=== PATIENT | female | born 1990 | race Caucasian/White ===

== ENCOUNTER → 2018-02-12 09:49 | Outpatient (CLI) | payer OTHER, SELFPAY ==
[2017-06-27 12:30] VITALS: BMI 28.7
[2018-02-12 12:03] LABS: Color, Urine Yellow (Yellow); Glucose, Dipstick Normal (Normal); Ketone-Dipstick 15 mg/dl (Negative); Leukocyte Esterase-Dipstick Negative /ul (Negative); Nitrite-Dipstick Negative (Negative); Occult Blood-Urine 10 /ul (Negative); Protein-Dipstick Negative (Negative); Urine Bilirubin Dipstick Negative (Negative); Urine Clarity Sl. Cloudy (Clear); Urine Urobilinogen Normal (Normal); Urine pH 6.5 (5.0 - 8.0)
[2018-02-12 12:13] LABS: Absolute Lymphocyte Count 2.29 X10^3/ul (0.83-4.51); Absolute Neutrophil Count 4.5 X10^3/uL (2.0-7.7); Basophil# 0.03 X10^3/uL; Basophil% 0.4 % (0-1); Eosinophil# 0.09 X10^3/uL; Eosinophils% 1.2 % (0-5); Lymphocyte # 2.29 X10^3/ul (4.0); Mean Corp Hgb Conc 34.1 g/gl (32-36); Mean Corpuscular Hgb 29.2 pg (27.0-32.0); Mean Corpuscular Volume 85.4 fL (81-99); Monocyte# 0.52 X10^3/uL; Neutrophil # 4.45 X10^3/uL (2.7-7.7); Neutrophil % 60.3 % (47-70); Platelet Count 250 K/mm3 (150-450); RBC Distribution Width CV 14.5 % (11.6-14.6); RBC Distribution Width SD 44.5 fl (35.1-43.9); White Blood Count 7.4 K/mm3 (4.4-11.0)
[2018-02-12 12:21] LABS: POSITIVE COUNT NO; POSITIVE DIFFERENTIAL NO; POSITIVE MORPHOLOGY NO
[2018-02-12 12:25] LABS: Protein, Urine (Random) < 6.0 mg/dL (<11.9); Prothrombin Time (Protime)PT. 12.7 SECONDS (11.7-14.9)
[2018-02-12 12:26] LABS: Partial Thromboplast Time 29.9 Seconds (24.1-36.2)
[2018-02-12 12:44] LABS: ALB/GLOB Ratio 1.1 RATIO (0.9-2.4); AST(SGOT) 16 U/L (15-37); Alanine Aminotransfer ALT/SGPT 31 U/L (13-56); Alkaline Phosphatase 62 U/L (45-117); Anion Gap 12 (5-15); BUN 13 mg/dL (7-18); BUN/Creat Ratio 19.5 RATIO (10-20); Calcium,Total 8.7 mg/dL (8.5-10.1); Chloride 104 mmol/L (98-107); Creatinine, Serum 0.66 mg/dL (0.55-1.02); EST Glomerular Filtration Rate 114 mL/min (>60); Est Glom Filt Rate - Afr Amer 138 mL/min (>60); Globulin 3.5 g/dL (2.2-4.2); Glucose 81 mg/dL (74-106); Potassium 3.7 mmol/L (3.5-5.1); Protein, Total 7.5 g/dL (6.4-8.2); Rheumatoid Factor < 10.0 IU/mL (<15); Sodium Level 140 mmol/L (136-145)
[2018-02-13 12:09] LABS: Anti-Centromere B Ab <0.2 AI (0.0-0.9); Anti-Jo <0.2 AI (0.0-0.9); Anti-Scleroderma-70 AB <0.2 AI (0.0-0.9); RNP Ab <0.2 AI (0.0-0.9); SJOGREN'S Anti-SS-A test < 0.2 AI (0.0-0.9); SJOGREN'S Anti-SS-B test < 0.2 AI (0.0-0.9); Smith Ab <0.2 AI (0.0-0.9)
[2018-02-13 16:55] LABS: ANTINUCLEAR ANTIBODIES DIRECT Negative (Negative); Anti-dsDNA Ab 1 IU/mL (0-9)
[2018-02-14 05:06] LABS: Complement C3 125 mg/dL (82-167); Dilute Prothrombin Time (dPT) 49.9 sec (0.0-55.0); Dilute Russell Viper Venom 40.7 sec (0.0-47.0); Hexagonal Phase Phospholipid 10 sec (0-11); Thrombin Time 18.1 sec (0.0-23.0); dPT Confirm Ratio 1.08 Ratio (0.00-1.40)
[2018-02-14 09:25] LABS: CCP IgG Antibodies 10 units (0-19); HEPATITIS B SURFACE AG Negative (Negative); Hep B Surface Antibodies Non Reactive (.); Hep C Antibodies 0.2 s/co ratio (0.0-0.9); Interpretation Comment: (.)
[2018-02-14 09:36] LABS: Thrombin Time 18.3 sec (0.0-23.0)
== END ==
PROVIDERS: Family Provider Family Medicine; PCP Family Medicine; Referring Provider Internal Medicine Rheumatology; Visit Provider Internal Medicine Rheumatology
DX: M06.4 Inflammatory polyarthropathy (principal); M35.7 Hypermobility syndrome
CPT/HCPCS: 36415; 80053; 81002; 82570; 84156; 85025; 85598; 85610; 85670; 85730; 86038; 86160; 86200; 86225; 86235; 86431; 86706; 86803; 87340

== ENCOUNTER → 2018-06-05 17:54 | Outpatient (CLI) | payer OTHER, SELFPAY ==
[2017-06-27 12:30] VITALS: BMI 28.7
[2018-06-13 12:00] LABS: HPV Reflexed? NOT INDICATED
== END ==
PROVIDERS: Family Provider Family Medicine; PCP Family Medicine; Visit Provider Obstetrics & Gynecology
DX: Z12.4 Encounter for screening for malignant neoplasm of cervix (principal)
CPT/HCPCS: 87624; 88175; G0145

== ENCOUNTER → 2019-02-22 18:37 | Outpatient (CLI) | payer OTHER, SELFPAY ==
[2019-02-22 20:12] LABS: Chlamydia Trachomatis by PCR Negative (Negative); Neisserai gonorrhoeae by PCR Negative (Negative); Probe Check PASS; Sample Adequacy Control PASS; Specimen Processing Control PASS
== END ==
PROVIDERS: Family Provider Family Medicine; PCP Family Medicine; Referring Provider Obstetrics & Gynecology; Visit Provider Obstetrics & Gynecology
DX: Z11.3 Encounter for screening for infections with a predominantly sexual mode of transmission (principal)
CPT/HCPCS: 87491; 87591

== ENCOUNTER → 2019-03-29 16:29 | Outpatient (CLI) | payer OTHER, SELFPAY ==
[2017-06-27 12:30] VITALS: BMI 28.7
[2019-03-29 17:58] LABS: Absolute Lymphocyte Count 2.68 X10^3/uL (0.83-4.51); Absolute Neutrophil Count 7.4 X10^3/uL (2.0-7.7); Basophil# 0.04 X10^3/uL; Basophil% 0.4 % (0-1); Eosinophil# 0.03 X10^3/uL; Eosinophils% 0.3 % (0-5); Hematocrit 38.1 % (37-47); Lymphocyte # 2.68 X10^3/ul (4.0); Lymphocyte % 25.1 % (19-41); Mean Corp Hgb Conc 34.1 g/dL (32-36); Mean Corpuscular Hgb 29.3 pg (27.0-32.0); Mean Platelet Vol. 10.2 fl (6.2-12.0); Monocyte# 0.51 X10^3/uL; Monocyte% 4.8 % (0-10); NRBC Flagged by Analyzer 0 % (0-5); Neutrophil # 7.39 X10^3/uL (2.7-7.7); Platelet Count 213 K/mm3 (150-450); RBC Distribution Width CV 12.7 % (11.6-14.6); RBC Distribution Width SD 39.8 fl (35.1-43.9); Red Blood Count 4.43 M/mm3 (4.2-5.4); White Blood Count 10.7 K/mm3 (4.4-11.0)
[2019-03-29 18:13] LABS: Amphetamine Urine VISTA NEGATIVE (<1000 ng/mL); Barbiturate Urine VISTA NEGATIVE (< 200 ng/mL); Benzodiazepine Urine VISTA NEGATIVE (< 200 ng/mL); Cocaine Urine VISTA NEGATIVE (< 300 ng/mL); Ecstacy Urine VISTA NEGATIVE (< 500 ng/mL); Methadone Urine VISTA NEGATIVE (< 300 ng/mL); PCP Urine VISTA NEGATIVE (< 25 ng/mL); THC Urine VISTA NEGATIVE (< 50 ng/mL); Vista UDS pH Range 7
[2019-03-29 18:24] LABS: Thyroid Stim Hormone (TSH) 1.93 uIU/mL (0.358-3.74)
[2019-03-29 18:39] LABS: Color, Urine Yellow (Yellow); Glucose, Dipstick Normal (Normal); Ketone-Dipstick 5 mg/dl (Negative); Leukocyte Esterase-Dipstick 100 /ul (Negative); Nitrite-Dipstick Negative (Negative); Occult Blood-Urine 10 /ul (Negative); Protein-Dipstick Negative (Negative); Specific Gravity, Urine 1.015 (1.002-1.030); Urine Bilirubin Dipstick Negative (Negative); Urine Clarity Cloudy (Clear); Urine Urobilinogen Normal (Normal)
[2019-04-01 10:33] LABS: HIV - WCH Non-Reactive (Nonreactive); Hepatitis B Surface Antigen Non-Reactive (Nonreactive); Hepatitis C Antibody Non-Reactive (Nonreactive); Rubella IgG > 500.0 IU/mL; Vitamin D,25 Hydroxy 17.5 ng/mL (29.95-100.01)
[2019-04-04 02:55] LABS: Prenatal RPR NONREACTIVE (NONREACTIVE)
== END ==
PROVIDERS: Visit Provider Obstetrics & Gynecology
DX: Z34.82 Encounter for supervision of other normal pregnancy, second trimester (principal)
CPT/HCPCS: 36415; 80307; 81002; 82306; 84443; 85025; 86703; 86762; 86803; 87340

== ENCOUNTER → 2019-07-05 | Outpatient (CLI) | payer OTHER, SELFPAY ==
[2017-06-27 12:30] VITALS: BMI 28.7
[2019-07-05 16:58] LABS: Hematocrit 35.4 % (37-47); Hemoglobin 12.1 g/dL (12.0-15.0); Mean Corp Hgb Conc 34.2 g/dL (32-36); Mean Corpuscular Hgb 30.7 pg (27.0-32.0); Mean Corpuscular Volume 89.8 fL (81-99); Mean Platelet Vol. 9.7 fl (6.2-12.0); Platelet Count 243 K/mm3 (150-450); RBC Distribution Width CV 13.6 % (11.6-14.6); RBC Distribution Width SD 44.9 fl (35.1-43.9); Red Blood Count 3.94 M/mm3 (4.2-5.4); White Blood Count 9.9 K/mm3 (4.4-11.0)
[2019-07-05 17:09] LABS: Glucose Challenge Gest 1H 50g 87 mg/dL (70-140)
[2019-07-05 17:47] LABS: Vitamin D,25 Hydroxy 35.8 ng/mL
== END | disposition home or self-care (01) ==
LOC: LABSPEC 16:10
PROVIDERS: Referring Provider Obstetrics & Gynecology; Visit Provider Obstetrics & Gynecology
DX: Z34.83 Encounter for supervision of other normal pregnancy, third trimester (principal); E55.9 Vitamin D deficiency, unspecified
CPT/HCPCS: 82306; 82950; 85027

== ENCOUNTER 2019-07-25 17:08 | Outpatient (CLI) | payer OTHER, SELFPAY ==
[2017-06-27 12:30] VITALS: BMI 28.7
[2019-07-25 17:20] VITALS: BP 118/70; PULSE 98; TEMP 36.9; O2SAT 97
--- NOTE | 2019-07-25 17:48 | OB.TRI.NOTE ---
- Problem List (1) Decreased movement Status: Acute Qualifiers: Fetus number: single or unspecified fetus Trimester: third trimester Qualified Code(s): O36.8130 - Decreased movements, third trimester, not applicable or unspecified (2) 30 weeks gestation of Status: Acute History of Present Illness Date of Service: 07/25/19 Was patient seen by the physician?: Yes Reason For Visit: DECREASED MOVEMENT Date of Service: 07/25/19 Final BO: 09/27/19 Gestational age: 30 Weeks and 6 Days History of Present Illness: here at 30w6d gestation with decreased movement. States that the last two days she hasn't felt her baby move as much as normal. Allergies No Known Allergies Allergy (Unverified 06/27/17 12:31) - Pertinent Past Medical History Medical History: Past Medical History (Last Updated 06/27/17 @ 12:36 by Starr Sharma) Arthritis Review of Systems Constitutional: Denies: Chills, Fever, Weight Change HEENT: Denies: Head Aches, Sinus Congestion, Sinus Drainage Cardiovascular: Denies: Chest Pain, Palpitations Respiratory: Denies: Cough, Shortness of breath at rest, Sputum production Gastrointestinal: Denies: Abdominal Pain, Nausea, Vomiting Genitourinary: Denies: Dysuria Musculoskeletal: Denies: Joint Pain, Joint Tenderness Skin: Denies: Rash, Wounds Neurological: Denies: Numbness, Tingling, Focal weakness Psychiatric: Reports: Anxiety. Denies: Depression, Homicidal Ideations, Suicidal Ideations Hematologic/ Lymphatic: Denies: Easy Bruising, Easy Bleeding Physical Exam Vitals: Vital Signs Temp Pulse BP Pulse Ox 98.4 F 98 118/70 97 07/25/19 17:20 07/25/19 17:20 07/25/19 17:20 07/25/19 17:20 General: Alert, Oriented x3, No apparent distress HEENT: Atraumatic, Normocephalic. Negative for: Thyromegaly, Lymphadenopathy Cardiovascular: Regular rate, Regular Rhythm Lungs: Clear to auscultation Abdomen: Bowel Sounds Present, Gravid Neurological: Deep Tendon Reflexes 2+/4 and Symmetrical, Neuro grossly intact FINGERNAIL SCULPTURER: Normal external genitalia. 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
[2019-07-25 18:23] VITALS: BP 113/65; PULSE 88
[2019-07-25 18:25] VITALS: BMI 37.3
== END 2019-07-25 18:45 | disposition home or self-care (01) ==
LOC: WPOUT 17:18 → WP 17:18
PROVIDERS: Visit Provider Obstetrics & Gynecology
DX: O36.8130 Decreased fetal movements, third trimester, not applicable or unspecified (principal); Z3A.30 30 weeks gestation of pregnancy
CPT/HCPCS: 59025; 59050; 99218; G0378

== ENCOUNTER → 2019-08-02 16:50 | Outpatient (CLI) | payer OTHER, SELFPAY ==
[2019-07-25 18:25] VITALS: BMI 37.3
[2019-08-05 14:07] LABS: SJOGREN'S Anti-SS-A test < 0.2 AI (0.0-0.9)
[2019-08-05 20:59] LABS: SJOGREN'S Anti-SS-B test < 0.2 AI (0.0-0.9)
== END ==
PROVIDERS: Visit Provider Obstetrics & Gynecology
DX: Z34.83 Encounter for supervision of other normal pregnancy, third trimester (principal)
CPT/HCPCS: 36415; 86235

== ENCOUNTER → 2019-08-30 | Outpatient (CLI) | payer OTHER, SELFPAY | END | disposition home or self-care (01) | LOC: LABSPEC 16:10 | PROVIDERS: Visit Provider Obstetrics & Gynecology | DX: Z36.85 Encounter for antenatal screening for Streptococcus B (principal) | CPT/HCPCS: 87077; 87081; 87186 ==

== ENCOUNTER → 2019-09-09 16:30 | Outpatient (CLI) | payer OTHER, SELFPAY | PROVIDERS: PCP Family Medicine; Referring Provider Obstetrics & Gynecology; Visit Provider Obstetrics & Gynecology | DX: Z34.83 Encounter for supervision of other normal pregnancy, third trimester (principal) | CPT/HCPCS: 87635; G2023; U0003 ==

== ENCOUNTER 2019-09-13 10:00 | Outpatient (CLI) | payer OTHER, SELFPAY ==
[2019-09-13 10:22] VITALS: BMI 38.6
[2019-09-13] MEDS: Lactated Ringers 1,000 ML 125 ML IV (10:35)
[2019-09-13 10:41] VITALS: BP 119/80; PULSE 104
[2019-09-13] MEDS: Terbutaline 1 MG/ML Vial 0.25 MG SC (12:35)
[2019-09-13 12:37] VITALS: BP 116/72; PULSE 86
--- NOTE | 2019-09-13 12:45 | OB.TRI.NOTE ---
- Problem List (1) 38 weeks gestation of Status: Acute (2) malpresentation Status: Acute Qualifiers: malpresentation type: transverse lie Fetus number: single or unspecified fetus Qualified Code(s): O32.2XX0 - Maternal care for transverse and oblique lie, not applicable or unspecified History of Present Illness Date of Service: 09/13/19 Was patient seen by the physician?: Yes Reason For Visit: EXTERNAL VERSION Final BO: 09/27/19 Final BO Source: US <20 weeks Gestational age: 38 Weeks and 0 Days History of Present Illness: 29yo G1 @ 38 wga presents for scheduled external cephalic version due to transverse lie. Kim feels well today and is without complaints. Allergies No Known Allergies Allergy (Unverified 09/13/19 10:32) - Pertinent Past Medical History Medical History: Past Medical History (Last Updated 09/15/19 @ 14:[address] Renae Oro MD) Arthritis SLE (systemic lupus erythematosus) Laboratory Studies: COVID 19 NAAT negative Social History Smoking Status Never smoker Physical Exam Vitals: Vital Signs Pulse BP 86 116/72 09/13/19 12:37 09/13/19 12:37 General: Alert, Oriented x3, Cooperative, No apparent distress HEENT: Atraumatic, Normocephalic Cardiovascular: Regular rate, Regular Rhythm Lungs: Normal air movement Abdomen: Soft, Non Tender, Non-Distended, Gravid Estimated gestational size: Appropriate for gestational size Presentation: Transverse NST - FHR Rate Baby A Baseline: 135 Variability:: Moderate Accelerations:: 15 x 15 Decelerations:: None NST Reactive:: Yes FHR Category:: Category I Uterine Activity:: 0/10 Impression/Plan 29yo G1 @ 38 weeks gestation with transverse lie Bedside US confirms transverse life with MELODY 15.7cm Proceed with ECV as planned See procedure note
--- NOTE | 2019-09-13 13:07 | PCM.OPRPT ---
Problem List (1) 38 weeks gestation of Status: Acute (2) malpresentation Status: Acute Qualifiers: malpresentation type: transverse lie Fetus number: single or unspecified fetus Qualified Code(s): O32.2XX0 - Maternal care for transverse and oblique lie, not applicable or unspecified Report of Operation Date of Procedure: 09/13/19 Pre-Operative Diagnosis: 1. 38 week gestation. 2. Transverse lie Post-Operative Diagnosis: 1. 38 weeks gestation. 2. Transverse lie Surgery/Procedure Performed:: External cephalic version Special Medications: Terbutaline 0.25mg SC Description of Procedure: Patient monitored with Category I FHR present. Bedside US performed confirming transverse lie with head on the maternal left. MELODY 15.7cm. Reviewed with patient procedural indications and risks including discomfort, labor, rupture of membranes with potential prolapsed cord, placental abruption, FHR changes - any of which may necessitate emergent section. Patient and spouse given opportunity to ask questions and questions answered to their satisfaction. She desired to proceed. Terbutaline SC administered. I attempted a backward roll, then followed by a forward roll with version of the fetus into cephalic presentation. Periodic sonography was performed with view of the placenta with no evidence of bleed and FHR remained 140s-150s bpm when observed throughout the procedure. NST completed post procedure and reactive, Cat I. Patient without complaint of pain, leaking of fluid or bleeding. Will monitor for 2 hours post procedure, then d/c home. - Admit VTE Documentation VTE Present on Admission: No VTE Mechan Device Prophylaxis: SCD's VTE Pharm Prophylaxis ordered?: No
== END 2019-09-13 16:00 | disposition home or self-care (01) ==
LOC: WPOUT 10:05 → WP 10:05
PROVIDERS: PCP Family Medicine; Referring Provider Obstetrics & Gynecology; Visit Provider Obstetrics & Gynecology
DX: O32.2XX0 Maternal care for transverse and oblique lie, not applicable or unspecified (principal); O99.89 Other specified diseases and conditions complicating pregnancy, childbirth and the puerperium; M32.9 Systemic lupus erythematosus, unspecified; Z3A.38 38 weeks gestation of pregnancy
CPT/HCPCS: 96360; 96361 ×7; 96372; 59025; 59050; 59412; 99218; J7120; G0378

== ENCOUNTER → 2019-09-19 11:15 | Outpatient (CLI) | payer OTHER, SELFPAY ==
[2019-09-13 10:22] VITALS: BMI 38.6
== END ==
PROVIDERS: PCP Family Medicine; Visit Provider Obstetrics & Gynecology
DX: Z11.59 Encounter for screening for other viral diseases (principal)
CPT/HCPCS: 87635; G2023; U0003

== ENCOUNTER 2019-09-24 06:52 | Inpatient (IN) | payer OTHER, SELFPAY ==
[2019-09-24] VITALS (35 sets, daily range): BP systolic 97–157; BP diastolic 54–85; PULSE 72–141; TEMP 36.3–37.6; O2SAT 96–100; BMI 39.5
[2019-09-24] MEDS: Lactated Ringers 1,000 ML 125 ML IV (07:45)
[2019-09-24] MEDS: Terbutaline 1 MG/ML Vial 0.25 MG SC (08:08)
--- NOTE | 2019-09-24 08:35 | PCM.OPRPT ---
Problem List (1) 39 weeks gestation of Status: Acute (2) Breech presentation of fetus Status: Acute Qualifiers: Fetus number: single or unspecified fetus Qualified Code(s): O32.1XX0 - Maternal care for breech presentation, not applicable or unspecified Report of Operation Date of Procedure: 09/24/19 Pre-Operative Diagnosis: 1. 39-4/7 weeks gestational age. 2. breech presentation Post-Operative Diagnosis: 1. 39-4/7 weeks gestational age. 2. breech presentation Surgery/Procedure Performed:: External cephalic version Description of Surgical Findings:: MELODY 16.2 cm with MVP 4.56 cm. breech presentation. Special Medications: Terbutaline 0.25 mg Description of Procedure: Indications: 29-year-old 1 at 39-4/7 weeks gestational age with history of variable lie. She had presented at 38 weeks with transverse lie and underwent successful external cephalic version. On follow-up to the office however the baby had reverted to transverse presentation. She presents today for repeat version attempt. Reviewed with patient procedural risks, benefits, indications and alternatives. If version is unsuccessful we will proceed with section today. Citizen Of [place] section risks, benefits, indications and alternatives were reviewed. Patient and her spouse were given opportunity to ask questions and questions were answered to their satisfaction. Procedure: Patient had NST demonstrating baseline 130 bpm, moderate variability positive positive accelerations with absent decelerations. Bedside ultrasound was performed showing nuris breech presentation with head at the maternal right upper abdomen. MELODY was 16.2 cm. Placenta was anterior and fundal. Patient was given subcutaneous terbutaline. I proceeded with forward roll attempt followed by backward roll attempt with intermittent heart rate monitoring using the ultrasound. I again attempted a forward roll with significant shift of the position. Ultrasound was performed demonstrating cephalic presentation with normal appearing placenta. External heart rate monitor was replaced with heart rate in the 140s. Will plan to continue extended heart rate monitoring and proceed with induction later this morning. Patient tolerated the procedure well. - Admit VTE Documentation VTE Present on Admission: No VTE Pharm Prophylaxis ordered?: No
[2019-09-24 08:47] LABS: Absolute Lymphocyte Count 2.42 X10^3/uL (0.83-4.51); Absolute Neutrophil Count 8.1 X10^3/uL (2.0-7.7); Basophil# 0.03 X10^3/uL; Basophil% 0.3 % (0-1); Eosinophil# 0.09 X10^3/uL; Eosinophils% 0.8 % (0-5); Hematocrit 38.4 % (37-47); Hemoglobin 12.8 g/dL (12.0-15.0); Lymphocyte # 2.42 X10^3/ul (4.0); Mean Corp Hgb Conc 33.3 g/dL (32-36); Mean Corpuscular Volume 89.9 fL (81-99); Monocyte# 0.78 X10^3/uL; Monocyte% 6.8 % (0-10); NRBC Flagged by Analyzer 0 % (0-5); Neutrophil # 8.13 X10^3/uL (2.7-7.7); Neutrophil % 70.5 % (47-70); Platelet Count 251 K/mm3 (150-450); RBC Distribution Width CV 12.9 % (11.6-14.6); RBC Distribution Width SD 42.5 fl (35.1-43.9); Red Blood Count 4.27 M/mm3 (4.2-5.4); White Blood Count 11.5 K/mm3 (4.4-11.0)
--- NOTE | 2019-09-24 08:49 | PCM.HP.OB ---
- Problem List (1) 39 weeks gestation of Status: Acute (2) Breech presentation of fetus Status: Acute Qualifiers: Fetus number: single or unspecified fetus Qualified Code(s): O32.1XX0 - Maternal care for breech presentation, not applicable or unspecified History Date of Admission: 09/24/19 Final BO: 09/27/19 Final BO Source: US <20 weeks Gestational age: 39 Weeks and 4 Days History of this : This is a 29 year-old, G [1], P [], at 39 4/7 weeks gestational age with hx SLE and transverse lie who presented for external cephalic version this morning. The fetus was verted to cephalic presentation. Medical History: Medical History (Last Updated 09/15/19 @ 14:[address] Renae Oro MD) Arthritis M19.90 SLE (systemic lupus erythematosus) M32.9 Allergies No Known Allergies Allergy (Unverified 09/13/19 10:32) Home Medications: Home Medications cholecalciferol (vitamin D3) 25 mcg (1,000 unit) capsule 1,000 unit PO QDAY 06/27/17 Docosahexanoic Acid [Dha Algal-900] 300 mg PO DAILY 09/13/19 Hydroxychloroquine [Plaquenil] 200 mg PO DAILYCM 09/13/19 Pnv No.95/Ferrous Fum/Folic AC [ Caplet] 1 ea PO DAILY 09/13/19 Smoking Status: Never smoker Alcohol: None Number of Fetus(es): 1 NST - FHR Rate Baby A Baseline: 130 Variability:: Moderate Accelerations:: 15 x 15 Decelerations:: None NST Reactive:: Yes FHR Category:: Category I Uterine Activity:: 1/10 min History Past Pregnancies: Past Pregnancies Delivery Date Name GA/ Weeks Outcome Route Wt Sex Labor Length Anesthesia Delivery Location Provider FOB Labs: Mom's Problem List Problem Status Onset Code 39 weeks gestation of Acute Z3A.39 Breech presentation of fetus Acute O32.1XX0 Mom's Labs & Results 09/24/19 09/24/19 07:45 07:45 WBC 11.5 H RBC 4.27 Hgb 12.8 Hct 38.4 MCV 89.9 MCH 30.0 MCHC 33.3 RDW Std Deviation 42.5 RDW Coeff of Billy 12.9 Plt Count 251 MPV 10.0 Immature Gran % (Auto) 0.600 Neut % (Auto) 70.5 H Lymph % (Auto) 21.0 [place] % (Auto) 6.8 Eos % (Auto) 0.8 Baso % (Auto) 0.3 Absolute Neuts (auto) 8.1 H Absolute Lymphs (auto) 2.42 Nucleated RBC % 0 Blood Type AB POSITIVE Antibody Screen NEGATIVE Course Did the patient receive Yes care? Labs Blood Type: AB RH: POSITIVE RPR/VDRL/Syphilis Nonreactive Rubella status Immune HbSAg Negative Date Done: 03/29/19 Chlamydia Negative Gonorrhea Negative HIV/AIDS Non-Reactive Group B Strep: Positive Current Obstetrical History Gestational Diabetes No Incompetent Cervix No Infertility No IUGR No Macrosomia No Hypertension/Pre-eclampsia No Placenta Previa/Abruption No PTL/PROM No Uterine anomaly No Oligohydramnios No Polyhydramnios No Multiple gestation No Past Medical History Asthma No Diabetes No Hypertension No Heart disease No Mitral valve prolapse No Neurologic/Seizure disorder/ No Migraines Kidney disease No Liver disease No Varicosities No Clotting disorders/Hx of DVT No Thyroid Dysfunction No Other medical diseases Yes: lupus Psychiatric disorders No Major trauma No Abnormal PAP smear No Sleep apnea No Mammogram in the last 2 years No Enter DETAILS of medical pt states that she has some anxiety but she is history able to cope and deal with it on your own Social History Marital Status: Alleged father yoav Hx Smoking No Smoking Status Former smoker Expected Infant Delivery Method: Spontaneous Vaginal Number of Visits: 9 Physical Exam Vitals: Vital Signs Pulse BP 86 111/70 09/24/19 07:54 09/24/19 07:54 General: Alert, Oriented x3, Cooperative, No apparent distress HEENT: Atraumatic, Normocephalic Cardiovascular: Regular rate, Regular Rhythm, Normal S1, Normal S2 Lungs: Clear to auscultation, Normal air movement Abdomen: Soft, Non Tender, Non-Distended, Gravid Extremities:: No tenderness/swelling Neurological: Neuro grossly intact SUPERVISOR MULTIFOCAL LENS: Normal external genitalia Estimated gestational size: Appropriate for gestational size Presentation: Cephalic Cervix Dilation (cm): 0.5 Station: -3 Effacement (%): 25 Assessment/Plan All Active Problems (Last Updated 09/15/19 @ 14:[address] Renae Oro MD) malpresentation (Acute) 39 weeks gestation of (Acute) Breech presentation of fetus (Acute) This is a 29 year-old, G 1], P [], at 39 4/7 weeks gestational age. Proceed with misoprostol IOL
[2019-09-24] MEDS: Lactated Ringers 1,000 ML 50 ML IV (09:37)
[2019-09-24] MEDS: miSOPROStol 25 MCG TABLET VAGINAL (09:52)
[2019-09-24] MEDS: miSOPROStol 50 MCG TABLET VAGINAL (13:47)
[2019-09-24] MEDS: Mag Hydrox/Al Hydrox/Simeth 30 ML UDC PO ×2 (14:25→19:46)
[2019-09-24] MEDS: Lactated Ringers 500 ML 999 ML IV ×4 (14:32→19:10)
--- NOTE | 2019-09-24 17:53 | PCM.PN.BLA ---
Progress Note LABOR PROGRESS NOTE Requests pain medication. AVSS Breathing through contractions FHR 130, moderate variability, +accelerations, no decelerations TOCO 5/10 min SVE 2/75/-5, moderate and midposition A/P: 29yo G1 @ 39 4/7wga, IOL, hx maternal SLE, Cat I FHR -Epidural per patient request -Continue to monitor s/p cytotec -Maternal and statuses reassuring STROKE Vital Signs/Narrative: Vital Signs Temp Pulse BP Pulse Ox 09/24/19 16:55 99.6 F H 98 09/24/19 16:54 90 128/81 H 09/24/19 14:37 99.5 F H 09/24/19 14:36 87 120/76 97
[2019-09-24] MEDS: fentaNYL-bupivacaine (epidural) 100 ML BAG EPIDURAL ×2 (18:11→22:50)
[2019-09-24] MEDS: Lactated Ringers 1,000 ML 200 ML IV (19:54)
[2019-09-24] MEDS: Cefazolin 2 GM in 0.9% Normal Saline 100 ML IV (23:30)
--- NOTE | 2019-09-24 23:38 | PLAC_PTH ---
PATIENT: JAROD ABREU LOC: [facility] U#:[id number] AGE/SX: 29/F ROOM: WP007 RE09/24/[address]: Dr. Christopher Hemphill MD : 1990 BED: 1 DIS: 09/26/2019 SPEC #: [id number] RECD: 09/25/19 01:15 STATUS: ESTER JAME #: [id number] THI: 09/24/19 23:[address]: Christopher Hemphill DEPT: SURGICAL PATHOLOGY RECD BY: Osmany Bond ENTERED: 09/25/19 09:25 SP TYPE: PLACENTA OTHR DR: Dr. Juan Pablo Rivas MD Tissues: Placenta, NOS Procedures: Surgery Specimen Level V HEADER OPERATION: Primary section PRE-OP DIAGNOSIS: Labor TISSUE SUBMITTED: Placenta MICROSCOPIC DIAGNOSIS Placenta: Placental disc - third trimester placenta (424 gm). - Focal chronic villitis of unknown etiology. Membranes - no pathologic diagnosis. Umbilical cord - three blood vessels and no pathologic diagnosis. SJ:bandar 09/27/19 MICROSCOPIC DESCRIPTION Slides are reviewed. GROSS DESCRIPTION SPECIMEN: PLACENTA / CLINICAL INFORMATION: A. Weight: 3.815 kg B. Gestational Age: 39 weeks C. Sex: Female PLACENTAL WEIGHT (POST FIXATION): 424 gm PLACENTAL DIMENSIONS: 20 x 16 x 2 cm PLACENTAL SHAPE: Usual ovoid PLACENTAL WEIGHT FOR GESTATIONAL AGE: Within 10-99th percentile MEMBRANES - Present A. Insertion: Marginal B. Site of rupture from edge: At edge of placental disc C. Color of membrane: Parsons-fang D. Abnormalities: None UMBILICAL CORD - Present A. Color: Parsons-fang B. Insertion: Eccentric C. Length: 21 cm D. Diameter: 1 cm E. Number of vessels: Three F. Abnormalities: None PLACENTAL DISC - Present A. Color of surface: Parsons-fang B. surface abnormalities: None C. Maternal cotyledons: Intact with minimal tears D. Attached retro placental clot: No clot E. Cut surface: Dark red and spongy F. Lesions: None G. Separate clot: Absent SECTIONS SUBMITTED: 1. Umbilical cord ( end notched) 2. Umbilical cord, placental end 3. Membrane roll 4. Placental disc, and maternal surfaces 5. Placental disc, and maternal surfaces 6. Placental disc, and maternal surfaces AM:bandar 09/26/19 TC:3 CPT: 54781
[2019-09-25] VITALS (24 sets, daily range): BP systolic 95–116; BP diastolic 48–82; PULSE 72–96; RESP 16–18; TEMP 36.4–37; O2SAT 94–99
--- NOTE | 2019-09-25 00:20 | OP.PCM_ITS ---
Delivery Classification: JUANCHO Final BO: 09/27/19 Gestational age: 39 Weeks and 4 Days doctor who attended delivery (if requested by OB): Teresa Mclean - Increasing stress vending stand supervisor: Orin Alcala Type of Anesthesia:: Epidural - With Duramorph Implants Used: None Date of Procedure: 09/24/19 Pre-Operative Diagnosis: Increasing Stress Post-Operative Diagnosis: Increasing Stress Description of Procedure: Surgeon: Christopher Hemphill MD, FACOG Anesthesia: Elgin Amin MD Procedure: Primary Low Transverse Cervical Caesarean Section Findings: Viable female infant with Apgars of 6/8 in occiput anterior presentation with moderate meconium stained amniotic fluid and normal three- vessel placenta. Indication: This is a 29-year-old who presents for a cephalic version earlier in the day. Patient then had Cytotec induction and progressed to complete and pushing. Despite this multiple late decelerations were noted. Kiwi vacuum was applied x2 without any descent of the head from 0 to +1 station. No pop offs. Given no prospect of delivering within the next 2 to 4 hours it was decided to proceed with section for increasing stress. care has otherwise been uneventful except for recent unstable lie with 2 versions. The patient has been counseled regarding the risk and indications of this procedure including the possibility of bleeding infection and injury to surrounding structures such as bowel bladder. All questions were answered. Procedure: Patient was taken to the operating room where after the epidural catheter was redosed, the patient was prepped and draped in usual sterile fashion and a Miranda catheter was placed. The abdomen was entered through a Pfannenstiel incision and peritoneum was entered bluntly. After developing a bladder flap on the lower uterine segment a low transverse incision was made on the uterus and head was easily delivered onto the operative field the nose mouth and oropharynx were bulb suctioned. Subsequently a viable male was born with Apgars of 6/8. The infant was noted to cry move all extremities vigorously on the operative field. The umbilical cord was doubly clamped and ligated and infant handed to the nursery personnel who were present for the delivery. Placenta was delivered and noted to be 3 vessels and normal and cord gases were collected. Uterus was exteriorized and remaining placental tissue was removed. The uterus was then closed in 2 layers first with running locked 0 Vicryl suture followed by a second imbricating layer with 0 Vicryl suture. 0 Vicryl suture was then used in a horizontal mattress interrupted fashion to affect final hemostasis of the uterine incision line. Normal fallopian tubes and ovaries were visualized and the uterus was returned to the pelvis. Hemostasis was noted and rectus abdominis muscles were reapproximated in the midline with interrupted Number 0 Vicryl suture in a horizontal mattress fashion. Fascia was closed with running Number 1 PDS Strata fix suture. Subcutaneous tissue was irrigated with copious amounts of saline solution and then closed with running 3-0 Vicryl suture. Skin was closed with 4-0 monocryl suture in a running subcuticular fashion. Steri strips and a silver Mepilex dressing were placed across the incision. The patient tolerated the procedure well and was taken to the recovery room in satisfactory condition. Sponge, needle, and instrument counts were all reportedly correct. EBL was 750 cc. Ancef 2 gms IV was given prior to the procedure. Spicemen to Pathology: Placenta for studies Complications: None Amniotic Fluid Description: Moderate meconium Placenta Disposition: Sent to Pathology Specimen(s) sent to pathology: Placenta Drain: Miranda to straight drain Cord Entanglement: None Cord Vessel Description: 3 Vessels Esitmated Blood Loss (ml): 750 cc Gender: Female (1 minute): 6 (5 minute): 8 Antibiotic Given: Ancef 2 grams IV x1 Pt instructed on risks of surgery: Bleeding, Infection, Injury to surrounding structure(s) including bowel and bladder Complications: None - Admit VTE Documentation VTE Present on Admission: Yes VTE Mechan Device Prophylaxis: SCD's VTE Pharm Prophylaxis ordered?: Yes
[2019-09-25] MEDS: Oxytocin 30 units/NS 500 ml 30 UNITS/500 ML IV.SOLN 167 UNITS IV (01:00)
[2019-09-25] MEDS: Acetaminophen 500 MG Tablet 1000 MG PO ×4 (01:24→20:39)
[2019-09-25] MEDS: Lactated Ringers 1,000 ML 100 ML IV (03:48)
[2019-09-25] MEDS: Ketorolac 30 MG/ML Syringe IV ×3 (05:47→18:16)
[2019-09-25 06:05] LABS: Hematocrit 30.5 % (37-47); Hemoglobin 10.1 g/dL (12.0-15.0); Mean Corp Hgb Conc 33.1 g/dL (32-36); Mean Corpuscular Hgb 30.7 pg (27.0-32.0); Mean Corpuscular Volume 92.7 fL (81-99); Mean Platelet Vol. 9.8 fl (6.2-12.0); Platelet Count 215 K/mm3 (150-450); RBC Distribution Width CV 13.1 % (11.6-14.6); RBC Distribution Width SD 43.8 fl (35.1-43.9); Red Blood Count 3.29 M/mm3 (4.2-5.4); White Blood Count 16.6 K/mm3 (4.4-11.0)
--- NOTE | 2019-09-25 08:26 | PN.OBGYN_ITS ---
Patient Problems: Active and Suspected Problems (Last Updated 09/15/19 @ 14:[address] Renae Oro MD) 39 weeks gestation of (Acute) Breech presentation of fetus (Acute) Subjective: Kim is sore this morning. Not yet out of bed. No flatus, nausea. Reports good appetite. latched once since delivery and nursed well, otherwise, infant seems to latch then stop suckling. Denies heavy lochia. Objective: AVSS - Physical Exam Vitals/I&O's: Vital Signs Temp Pulse Resp BP Pulse Ox 98.6 F 96 17 95/50 L 97 09/25/19 03:46 09/25/19 05:50 09/25/19 05:50 09/25/19 03:46 09/25/19 05:50 Oxygen Delivery Method Room Air Weight: 91.9 kg Body Mass Index (BMI) 39.5 Intake and Output for Last 24 Hours 09/23/19 09/24/19 09/25/19 23:59 23:59 23:59 Intake Total 3717.92 / 3717.92 2077.6 / 2077.6 Output Total 250 / 250 200 / 200 Balance 3467.92 / 3467.92 1877.6 / 1877.6 General: Alert, Oriented x3, Cooperative, No apparent distress HEENT: Atraumatic, Normocephalic Lungs: Clear to auscultation, Normal air movement Cardiovascular: Regular rate, Regular Rhythm, Normal S1, Normal S2 Abdomen: Soft, Non Tender, Non-Distended, - - Fundus firm and nontender, incisional dressing c/d/i, lochia scant Extremities: No edema, No Calf Tenderness Neurological: Neuro grossly intact Psych/Mental Status: Normal Affect, Appropriate, Alert and oriented to time, place, person, mood and affect Laboratory Results 09/24/19 07:45: WBC 11.5 H, RBC 4.27, Hgb 12.8, Hct 38.4, MCV 89.9, MCH 30.0, MCHC 33.3, RDW Std Deviation 42.5, RDW Coeff of Billy 12.9, Plt Count 251, MPV 10.0, Immature Gran % (Auto) 0.600, Neut % (Auto) 70.5 H, Lymph % (Auto) 21.0, [place] % (Auto) 6.8, Eos % (Auto) 0.8, Baso % (Auto) 0.3, Absolute Neuts (auto) 8.1 H, Absolute Lymphs (auto) 2.42, Nucleated RBC % 0 09/24/19 07:45: Blood Type AB POSITIVE, Antibody Screen NEGATIVE 09/25/19 05:50: WBC 16.6 H, RBC 3.29 L, Hgb 10.1 L, Hct 30.5 L, MCV 92.7, MCH 30.7, MCHC 33.1, RDW Std Deviation 43.8, RDW Coeff of Billy 13.1, Plt Count 215, MPV 9.8 Current Medications Acetaminophen (Tylenol) 1,000 mg PO Q6H [facility] Last Admin: 09/25/19 01:24 Dose: 1,000 mg Documented by: Bisacodyl (Dulcolax) 10 mg RECTAL UD PRN PRN Reason: If no BM Enoxaparin Sodium (Lovenox) 40 mg SC DAILY [facility] Hydrocortisone (Hytone) 1 applic TOPICAL TID PRN PRN; Protocol PRN Reason: Discomfort Hydroxychloroquine S[facility] ([facility]aquenil) [facility] Lactated Ringer's () 1,000 mls @ 100 mls/hr IV .Q10H [facility] Last Admin: 09/25/19 03:48 Dose: 100 mls/hr Documented by: Naloxone HCl 4 mg/ Dextrose 504 mls @ 0 mls/hr IV .Q0M PRN; Protocol PRN Reason: Respiratory depression Cefazolin Sodium () 1 gm in 50 mls @ 150 mls/hr IV Q8H [facility] Stop: 09/25/19 15:49 Ibuprofen (Motrin) 600 mg PO Q6H [facility] Ketorolac Tromethamine (Toradol (Bkc)) 30 mg IV Q6H [facility] Stop: 09/25/19 23:31 Last Admin: 09/25/19 05:47 Dose: 30 mg Documented by: Methylergonovine Maleate (Methergine) 0.2 mg IM X1 PRN PRN Reason: Uterine Atony Naloxone HCl (Narcan) 0.02 mg IV Q1M PRN PRN Reason: RR <10 and pt unresponsive Ondansetron HCl (Zofran) 4 mg IV Q4H PRN PRN PRN Reason: Nausea Oxycodone HCl (Oxyir) 5 - 10 mg PO Q4H PRN PRN PRN Reason: Pain Score 4-10/10 Prochlorperazine Edisylate (Compazine Iv) 10 mg IV Q6H PRN PRN PRN Reason: NAUSEA Senna/Docusate Sodium (Senokot-S, Edwina-Colace) 0 tablet PO DAILY GRACIELA Simethicone (Mylicon) 80 mg PO PCHS PRN PRN Reason: Indigestion/stomach pain Sodium Chloride () 5 - 15 ml IV UD PRN PRN Reason: SALINE FLUSH Medical Necessity - Tobacco Use Smoking Status: Former smoker Assessment/Plan All Active Problems (Last Updated 09/15/19 @ 14:[address] Renae Oro MD) malpresentation (Acute) 39 weeks gestation of (Acute) Breech presentation of fetus (Acute) This is a 29 year-old, G 1], P 1001 POD#1 s/p PLTCS doing well. -AB positive -Routine postop care - -OOB later today
[2019-09-25] MEDS: Hydroxychloroquine 200 MG Tablet PO (08:56)
[2019-09-25] MEDS: Cefazolin 1 GM/50 ML BAG IV ×2 (08:57→16:11)
[2019-09-25] MEDS: Enoxaparin 40 MG/0.4 ML Syringe SC (11:18)
[2019-09-25] MEDS: 0.9% Saline Lock 10 ML Syringe IV ×5 (11:18→18:18)
[2019-09-25] MEDS: Senna/Docusate Sodium 1 Tablet PO (11:19)
[2019-09-26] MEDS: 0.9% Saline Lock 10 ML Syringe IV (00:38)
[2019-09-26] MEDS: Ketorolac 30 MG/ML Syringe IV (00:38)
[2019-09-26 00:49] VITALS: PULSE 96; RESP 18; O2SAT 98
[2019-09-26 02:00] VITALS: BP 124/72; PULSE 92; RESP 18; TEMP 36.5; O2SAT 99
[2019-09-26] MEDS: Acetaminophen 500 MG Tablet 1000 MG PO ×3 (02:02→13:57)
[2019-09-26] MEDS: oxyCODONE 5 MG Tablet PO ×2 (06:34→13:58)
[2019-09-26 08:03] VITALS: BP 111/72; PULSE 98; RESP 16; TEMP 36.8; O2SAT 98
[2019-09-26] MEDS: Hydroxychloroquine 200 MG Tablet PO (08:25)
--- NOTE | 2019-09-26 08:33 | PN.OBGYN_ITS ---
Patient Problems: Active and Suspected Problems (Last Updated 09/15/19 @ 14:[address] Renae Oro MD) 39 weeks gestation of (Acute) Breech presentation of fetus (Acute) Subjective: Doing okay, but upset that daughter was sent to [place] at 0300. When she cried it hurt her abdomen more and needed an oxy for the pain. Overall feels well, just wants to discharge to go see her baby. Denies heavy bleeding or concerns. Pumping breasts well. Tolerating a regular diet. Up in the room ambulating well, urinating fine and passing flatus. Objective: VSS. Fundus is firm, midline, u/1. Dressing is CDI. Lochia rubra moderate. - Physical Exam Vitals/I&O's: Vital Signs Temp Pulse Resp BP Pulse Ox 98.2 F 98 16 111/72 98 09/26/19 08:03 09/26/19 08:03 09/26/19 08:03 09/26/19 08:03 09/26/19 08:03 Oxygen Delivery Method Room Air Weight: 91.9 kg Body Mass Index (BMI) 39.5 Intake and Output for Last 24 Hours 09/24/19 09/25/19 09/26/19 23:59 23:59 23:59 Intake Total 3717.92 / 3717.92 3800.93 / 3800.93 Output Total 250 / 250 1660 / 1660 Balance 3467.92 / 3467.92 2140.93 / 2140.93 General: Alert, Oriented x3, Cooperative HEENT: Atraumatic, PERRLA, EOMI, Normocephalic Neck: Supple, No JVD, Negative Carotid Bruits Lungs: Clear to auscultation, Normal air movement Cardiovascular: Regular rate, No murmurs Abdomen: Bowel Sounds Present, Soft, Non Tender Extremities: No edema, Capillary Refill Less than 3 Seconds Skin: No rashes, No breakdown, Incision - Csection dressing CDI Musculoskeletal: No Tenderness to Palpation of Joints or Extremities Neurological: Cranial nerves II-XII grossly intact Psych/Mental Status: Normal Affect, Appropriate Current Medications Acetaminophen (Tylenol) 1,000 mg PO Q6H GRACIELA Last Admin: 09/26/19 02:02 Dose: 1,000 mg Documented by: Bisacodyl (Dulcolax) 10 mg RECTAL UD PRN PRN Reason: If no BM Enoxaparin Sodium (Lovenox) 40 mg SC DAILY [facility], [facility] Last Admin: 09/25/19 11:18 Dose: 40 mg Documented by: Hydrocortisone (Hytone) 1 applic TOPICAL TID PRN PRN; Protocol PRN Reason: Discomfort Hydroxychloroquine Sulfate ([facility]aquenil) [facility] Last Admin: 09/26/19 08:25 Dose: 200 mg Documented by: Naloxone HCl 4 mg/ Dextrose 504 mls @ 0 mls/hr IV .Q0M PRN; Protocol PRN Reason: Respiratory depression Ibuprofen (Motrin) 600 mg PO Q6H [facility] Methylergonovine Maleate (Methergine) 0.2 mg IM X1 PRN PRN Reason: Uterine Atony Naloxone HCl (Narcan) 0.02 mg IV Q1M PRN PRN Reason: RR <10 and pt unresponsive Ondansetron HCl (Zofran) 4 mg IV Q4H PRN PRN PRN Reason: Nausea Oxycodone HCl (Oxyir) 5 - 10 mg PO Q4H PRN PRN PRN Reason: Pain Score 4-10/10 Last Admin: 09/26/19 06:34 Dose: 10 mg Documented by: Prochlorperazine Edisylate (Compazine Iv) 10 mg IV Q6H PRN PRN PRN Reason: NAUSEA Senna/Docusate Sodium (Senokot-S, Edwina-Colace) 0 tablet PO DAILY [facility] Last Admin: 09/25/19 11:19 Dose: 1 tablet Documented by: Simethicone (Mylicon) 80 mg PO [facility] PRN PRN Reason: Indigestion/stomach pain Sodium Chloride () 5 - 15 ml IV UD PRN PRN Reason: SALINE FLUSH Last Admin: 09/26/19 00:38 Dose: 10 ml Documented by: Medical Necessity - Tobacco Use Smoking Status: Former smoker Assessment/Plan All Active Problems (Last Updated 09/15/19 @ 14:[address] Renae Oro MD) malpresentation (Acute) 39 weeks gestation of (Acute) Breech presentation of fetus (Acute) A/P: Female transferred to [facility] overnight Pain is well controlled with oral medication Normal involution and course Dressing to be removed in 5 days Rx for Oxyir and Colace to be resent Okay to discharge home today with a 1 week incision check and a 6 week routine PP visit
[2019-09-26] MEDS: Senna/Docusate Sodium 1 Tablet PO (10:33)
[2019-09-26] MEDS: Enoxaparin 40 MG/0.4 ML Syringe SC (10:33)
[2019-09-26] MEDS: Ibuprofen 600 MG Tablet PO (12:22)
--- NOTE | 2019-09-26 13:10 | DCINST_ITS ---
Discharge Diet: No Restrictions Discharge Activity: May Not Drive - for 2 weeks or while taking narcotic pain meds., May Shower, May Take a Tub Bath - in 7 days. May resume sexual activity in: 4-6 weeks Lifting Restrictions: 20 pounds Additional Activity Instructions:: Nothing in the vagina for 4-6 weeks. You may return to work/school in 6 weeks. Call your doctor if your incision/area has: Continuous Slow Oozing, Sudden Increased Bleeding, Increased Pain/ Swelling, Increased Redness, Foul Smelling Discharge Call your doctor if you observe: Fever of 101 or Higher Suture Line Care: Avoid Pulling/Pushing, Avoid Pinching/Bending Remove Dressing in (days):: 5 Additional Instructions: If you experience any of the following, contact your healthcare provider. * Bleeding that soaks a pad every hour for 2 hours * Fever 100.4 or higher * Unrelieved incision or abdominal pain * Swelling, redness, discharge or bleeding from your incision or episiotomy site * Your incision begins to separate * Problems urinating (including inability to urinate or burning while urinating). * Visual changes * Severe headache * Flu-like symptoms * Pain or redness in one of both of your breasts * Pain, warmth, tenderness or swelling in your legs, especially the calf area * Frequent nausea and vomiting * Symptoms of depression or anxiety If you experience any of the following, call 911 or go to the nearest Emergency Room. * Chest pain * Problems breathing * Seizure activity * Partial or complete paralysis of a body part, slurred speech, weakness or drooping of the face, or a sudden inability to walk or hold your balance Allergies/Adverse Reactions: Allergies No Known Allergies Allergy (Unverified 09/13/19 10:32) Medications to take at Discharge cholecalciferol (vitamin D3) 25 mcg (1,000 unit) capsule 1,000 unit PO QDAY 06/27/17 Docosahexanoic Acid [Dha Algal-900] 300 mg PO DAILY 09/13/19 Hydroxychloroquine [Plaquenil] 200 mg PO DAILYCM 09/13/19 Pnv No.95/Ferrous Fum/Folic AC [ Caplet] 1 ea PO DAILY 09/13/19 Docusate Sodium [Colace] 100 mg PO BID PRN PRN #60 cap 09/24/19 Oxycodone [Oxyir] 5 mg PO Q6H PRN PRN 7 Days #20 tab 09/25/19 Bad tableFollow-Up: Call to make an appointment with your doctor for an incision check in 1-2 weeks. You will also need a 6 week post- follow up appointment. Test results from this visit will be discussed in further detail at your follow- up appointment, if applicable. Please Follow Up With: Renae Colvin MD Primary Care Physician: Juan Pablo Rivas MD [Primary Care Provider] -
[2019-09-26 13:38] VITALS: BP 112/76; PULSE 97; RESP 16; TEMP 36.9; O2SAT 97
--- NOTE | 2019-09-26 14:36 | CASEMGMT ---
Social Work Brief Assessment Labor and Delivery Unit Patient Address:[address] [place] [id number] Phone number: [phone] Date of Referral/Notification: 09.26.2019 Time of Referral: 827 Referred By: Reason for Referral: baby transferred to [facility] unexpectedly Date of Intervention: 09.26.2019 Time of Intervention: 1305 Informant: Medical record and mother of baby (MOB) Kim Dos Santos History: MOB is a 29 year old female, G1, P0 to 1 after delivering Baby Girl Khushi Fernandez on 09.24.2019 via caesarian section, after attempt at vaginal delivery. Baby weighted 8 pounds 7 ounces at . Apgars 6 and 8 at 1 and 5 minutes of baby's life. Per record, baby was transferred late in the night/early hours this morning to [facility] due to concern for Subgaleal. Father of baby (FOB) is reported to be Edgar. 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 MOB reports to have some history of anxiety, would be open to medication and/or counseling if needed in the future. Reports family history of anxiety. No reports or indication of any substance use, and maternal drug screen negative during on 03.29.2019. No reports or indication of abuse or safety issues at home or current relationship. Assessment: Met with MOB alone in room who was waiting on discharge today. MOB reports FOB is with Rebecca at [place] and MOB is looking forward seeing and holding her baby. MOB reports she has had some tears since baby had to be transferred, and it has been hard to be from her family. MOB reports belief will feel some relief when able to go to [place] and see the baby. Supportive listening offered and normalized thoughts and feelings in relating to current events. Touched on depression and anxiety, as well as risk factors present. Discussed medications and counseling as interventions often helpful for the period, as well as provided packet to reference when back at home, and if needed or desired to have more information. Educated to online, texting, and local support options. MOB expressed appreciation for visit and for information provided today. MOB with good eye contact, appropriate mood and affect to content and situation. MOB did become teary a few times when talking about the baby. MOB does endorse having a positive support system and is willing to utilize support system as needed. Plan: MOB discharging home today with resources for depression and anxiety provided. This advertising writer's card also provided in case MOB has questions about information provided. No further needs requested or indicated. -QUEENIE Culp, MARINE DESIGNER
[2019-09-27 12:52] LABS: Pathology Specimen OB SEE PATHOLOGY REPORT
== END 2019-09-26 14:00 | disposition home or self-care (01) | DRG 788 ==
PROVIDERS: Obstetrics & Gynecology; Admitting Provider Obstetrics & Gynecology; PCP Family Medicine; Referring Provider Obstetrics & Gynecology; Visit Provider Obstetrics & Gynecology
DX: O32.1XX0 Maternal care for breech presentation, not applicable or unspecified (principal); O99.214 Obesity complicating childbirth; E66.01 Morbid (severe) obesity due to excess calories; O77.9 Labor and delivery complicated by fetal stress, unspecified; O77.0 Labor and delivery complicated by meconium in amniotic fluid; Z3A.39 39 weeks gestation of pregnancy; Z37.0 Single live birth; M32.9 Systemic lupus erythematosus, unspecified; O75.89 Other specified complications of labor and delivery
CPT/HCPCS: 59025; 59050; 59412; 76815; 85025; 85027; 86850; 86900; 86901; 88307; 99218; J7120; A4216; G0378; J2405

== ENCOUNTER → 2020-01-06 19:00 | Outpatient (CLI) | payer OTHER, SELFPAY ==
[2019-09-24 07:57] VITALS: BMI 39.5
== END ==
PROVIDERS: PCP Family Medicine; Referring Provider Obstetrics & Gynecology; Visit Provider Obstetrics & Gynecology
DX: Z39.1 Encounter for care and examination of lactating mother (principal)
CPT/HCPCS: 96158; 96159

== ENCOUNTER 2023-12-16 05:23 | Emergency (ER) | payer OTHER, SELFPAY ==
[2023-12-16 05:24] VITALS: BP 144/95; PULSE 94; RESP 18; TEMP 37; O2SAT 98; BMI 43.3
[2023-12-16] MEDS: 0.9% Normal Saline (1000mL) 1,000 ML 999 ML IV (05:56)
[2023-12-16] MEDS: Metoclopramide 10 MG/2 ML Vial 5 MG IV (05:59)
[2023-12-16] MEDS: predniSONE 20 MG Tablet 60 MG PO (06:00)
[2023-12-16] MEDS: DiphenhydrAMINE 50 MG/ML Syringe 25 MG IV (06:00)
[2023-12-16] MEDS: Ketorolac 15 MG/ML Vial IV (06:00)
--- NOTE | 2023-12-16 06:06 | EDS_ITS ---
HPI History of Present Illness Chief Complaint: Headache Narrative Narrative: Patient is a 33-year-old female past medical history of lupus, arthritis who presents to the emergency department the chief complaint of headache. Patient states that on Monday she developed a headache that gradually came on and had progressively worsened throughout the week to the point that she states that she cannot take a lot longer prompting her here for the valuation management. She states that she believes that she is having a lupus flare as this is what it normally feels like. She states that normally will give her IV fluids, steroids. She states that she follows with someone in [facility] for her lupus. She denies any head trauma denies any recent sick contacts or illnesses. Denies any drug use. Patient did note that she has had some nausea vomiting associated with her headache. [facility] Medical History SLE (systemic lupus erythematosus) Arthritis Home Medications ?Medication ?Instructions ?Recorded ?Last Taken ?Type hydroxychloroquine 200 mg tablet 200 mg PO DAILYCM lupus 09/13/19 09/23/19 20:30 History escitalopram oxalate 10 mg tablet 10 mg PO DAILY 12/16/23 Unknown History ondansetron 4 mg disintegrating 4 mg PO Q6H PRN nausea and 12/16/23 Unknown Rx tablet vomiting #20 tabs prednisone 50 mg tablet 50 mg PO DAILY 5 days #5 tabs 12/16/23 Unknown Rx Allergy/AdvReac Type Severity Reaction Status Date / Time No Known Allergies Allergy Verified 12/16/23 05:24 Family History Other BLOOD CLOTS Hypertension Social History Smoking Status: Former smoker alcohol intake: current alcohol intake frequency: a few times a month ROS ROS ED ROS Narrative Constitutional: Complains of headache as noted above denies any fevers, chills, lightheadedness, dizziness Eyes: Denies changes vision double vision blurry vision Cardiovascular: Denies chest pain or palpitations Respiratory: Denies coughing wheezing shortness of breath Abdomen: Complains of nausea vomiting as noted above denies abdominal pain : Denies any urinary symptoms Neurological: Denies numbness, weakness, tingling Musculoskeletal: Denies back pain Skin: Denies rashes or lesions EXAM Physical Exam Narrative Exam Narrative: General: Patient was lying in bed rest comfortably did not appear to be in acute distress Head: Atraumatic, normocephalic Eyes: PERRL bilaterally, EOMI buttock no conjunctival injection noted Neck: Soft, supple, trach midline, no concern for meningitis Cardiovascular: Regular rate and rhythm no murmurs gallops rubs noted Respiratory: Clear to auscultation bilaterally Abdomen: Soft, nondistended, nontender to palpation Extremities: +5/5 strength noted in the bilateral upper and lower extremities Neurological: Patient following commands knew that she was at [facility] years 2023. Patient completed finger-nose test bilaterally tender difficulty, NIH of 0 GCS 15 Skin: Warm, dry, intact Const Vital Signs: 12/16/23 05:24 Temperature 98.6 F Temperature Source Oral Pulse Rate 94 Respiratory Rate 18 Blood Pressure 144/95 H Blood Pressure Mean 111 Pulse Ox 98 Oxygen Delivery Method Room Air MDM MDM MDM Narrative Medical decision making narrative: Patient is a 33-year-old female who presented to the emergency department with concern for a headache in the setting of a lupus flare. Patient be given IV fluids, Benadryl, Toradol, Reglan. Once again she states that this feels like a lupus flare headache for her she also be given prednisone. Patient is nontoxic in appearance. On the differential diagnose includes but not limited to migraine headache, tension headache, cluster headache. Once workup is obtained reviewed she will be reevaluated On reevaluation patient she states that she is feeling better she would like to go home at this point in time. Patient will be given a prescription for prednisone and for Zofran. She is advised to follow-up with her physicians in the outpatient setting. She is agreeable this plan all question concerns answered she was discharged home in stable condition. Discharge Plan Triage Chief Complaint: Headache ED Provider: Ronaldo Aguillon Dx/Rx/DC Orders Clinical Impression: Headache Prescriptions: New prednisone 50 mg tablet 50 mg PO DAILY 5 Days Qty: 5 0RF ondansetron 4 mg tablet,disintegrating 4 mg PO Q6H PRN (Reason: nausea and vomiting) Qty: 20 0RF No Action hydroxychloroquine 200 MG tablet 200 mg PO DAILYCM escitalopram oxalate 10 mg tablet 10 mg PO DAILY Primary Care Provider: Kim Greco Referrals: Kim Greco PA [Primary Care Provider] - Activity Restrictions/Additional Instructions: Take steroids as prescribed starting tomorrow as you already took your first dose here today. Ensure adequate hydration. Use Tylenol ibuprofen [id number] for pain control. Return if worsening symptoms or any concerns. Follow-up with your physician in the outpatient setting. Print Language: Bengali Disposition Disposition: Home, Self Care
[2023-12-16 06:56] VITALS: BP 119/76; PULSE 65; RESP 18; TEMP 36.6; O2SAT 96
== END 2023-12-16 06:59 | disposition home or self-care (01) ==
PROVIDERS: Emergency Provider Emergency Medicine; Visit Provider Emergency Medicine
DX: R51.9 Headache, unspecified (principal); M32.9 Systemic lupus erythematosus, unspecified; M19.90 Unspecified osteoarthritis, unspecified site; Z79.899 Other long term (current) drug therapy; Z87.891 Personal history of nicotine dependence
CPT/HCPCS: 96361; 96374; 96375; 99283; J7030; A4216